=== PATIENT | male | born 1955 ===

== ENCOUNTER 2020-10-04 07:57 | Day surgery (SDC) | payer OTHER ==
[~2020-10-04] VITALS: Ht 180.3 cm; Wt 66.4 kg
[~2020-10-04 07:57] MED LIST: ALPR1; ATEN25 PO; CLON1 PO; FLUSAL1005 IH; HYDACE5; OXYACE5T PO; OXYC10ER PO; SYMBACORT; TRAZ50 PO
[2020-10-04] MEDS ORDERED: ESZOPICLONE1 MG PO (08:47)
[2020-10-04] MEDS ORDERED: FLUT.05NI (08:47)
[2020-10-04] MEDS ORDERED: ESCI10 PO (08:47)
[2020-10-04] MEDS ORDERED: NEURONTIN300 MG PO (08:48)
[2020-10-04] MEDS ORDERED: HYDACE10B (08:48)
--- NOTE | 2020-10-04 08:49 | NUR ---
Ambulatory in Day Surgery Patient states colon prep results clear. LAST DRINK AT 0600 THIS AM, NAZ DUPONT MD NOTIFIED. History, Chart, Medications and Allergies reviewed before start of procedure. Lungs clear T/O to Auscultation.
--- NOTE | 2020-10-04 09:19 | NUR ---
10/04/20 0919 Rolando Sidhu History, Chart, Medications and Allergies reviewed before start of procedure.MONITOR INTACT WITH CONTINUOUS PULSE OXIMETRY AND INTERMITTENT BP.3-LEAD EKG REVIEWED WITH PHYSICIAN PRIOR TO START OF PROCEDURE.O2 VIA N/C INTACT THROUGHOUT SEDATION/PROCEDURE. PATIENT DETERMINED TO BE ASA APPROPRIATE FOR PROPOFOL SEDATION PRIOR TO START OF PROCEDURE BY DR. DUPONT.
--- NOTE | 2020-10-04 10:04 | NUR ---
Patient up to Ambulate independently. Gait steady. Discharge instructions reviewed with patient. Patient verbalizes understanding. Copy given to patient to take home. Patient States Post-Procedure ride home has been arranged. Discharged via wheelchair to private car for ride home. ALL BELON INGS RETURNED TO PATIENT.
== END 2020-10-04 10:17 | disposition home or self-care (01) ==
LOC: ORSCMMR 07:57 → ORD 09:00 → ORSCMMR 10:17
PROVIDERS: Internal Medicine Gastroenterology
PROC: 0DJD8ZZ Inspection of Lower Intestinal Tract, Via Natural or Artificial Opening Endoscopic (ICD-10-PCS; principal; 2020-10-04 09:00)
DX: Z12.11 Encounter for screening for malignant neoplasm of colon (principal); Z86.010 Personal history of colon polyps; K64.8 Other hemorrhoids; I10 Essential (primary) hypertension; J45.909 Unspecified asthma, uncomplicated; F17.210 Nicotine dependence, cigarettes, uncomplicated
CPT/HCPCS: J2704; J7120